=== PATIENT | male | born 1985 | race Two or more races ===

== ENCOUNTER 2017-09-15 02:19 | Inpatient (IN) | payer SELFPAY ==
[~2017-09-15] VITALS: Ht 185.4 cm; Wt 89.8 kg
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
[2017-09-15] MEDS ORDERED: HYDROCODONE/APAP 5/325MG 1 EACH TABLET PO ONE (02:30)
[2017-09-15] MEDS ORDERED: HYDROCODONE/APAP 5/325MG 1 EACH TABLET ONE (02:42)
--- NOTE | 2017-09-15 02:45 | NUR ---
MD DODGE AT BED SIDE FOR EVAL
--- NOTE | 2017-09-15 04:21 | NUR ---
20G LEFT AC IV STARTED, BLOOD SAMPLE OBTAINED AND SENT TO LAB
[2017-09-15] MEDS ORDERED: MORPHINE SULFATE INJ 4 MG/ML DISP.SYRIN ONE (04:29)
[2017-09-15] MEDS ORDERED: ONDANSETRON HCL/PF 4 MG/2 ML VIAL ONE (04:29)
[2017-09-15] MEDS ORDERED: ONDANSETRON HCL/PF 4 MG/2 ML VIAL IV ONE (04:30)
[2017-09-15] MEDS ORDERED: MORPHINE SULFATE INJ 2 MG/ML DISP.SYRIN IV ONE (04:30)
--- NOTE | 2017-09-15 04:33 | NUR ---
MEDICATED PT ORDERED
--- NOTE | 2017-09-15 04:33 | NUR ---
RADIOLOGY AT BED SIDE FOR CHEST XRAY
[2017-09-15 04:47] LABS: CALCIUM, SERUM 8.1 mg/dL (8.5-10.1); CREATININE 1.2 mg/dL (0.6-1.3); POTASSIUM 3.5 mmol/L (3.5-5.1)
[2017-09-15 04:48] LABS: BASOPHILS % (AUTO) 0.1 % (0.0-2.0); EOSINOPHILS % (AUTO) 0.4 % (0.0-6.0); HEMATOCRIT 44 % (39-51); HEMOGLOBIN 14.6 g/dL (13.5-17.5); LYMPHOCYTES # (AUTO) 0.8 /CMM (0.8-4.8); LYMPHOCYTES % (AUTO) 3.8 % (20.0-44.0); MEAN CORPUSCULAR HEMOGLOBIN 31 PG (26.0-33.0); MEAN CORPUSCULAR HGB CONC 34 g/dl (31.0-36.0); MEAN CORPUSCULAR VOLUME 93 fL (80-96); MONOCYTES % (AUTO) 4.8 % (2.0-12.0); NEUTROPHILS # (AUTO) 19.8 /CMM (1.8-8.9); NEUTROPHILS % (AUTO) 90.9 % (43.0-81.0); PLATELET COUNT (AUTO) 249 /CMM (150-450); RDW COEFFICIENT OF VARIATION 12.4 (11.5-15.0); RED BLOOD CELL COUNT(AUTO) 4.68 MIL/uL (4.5-6.0); WHITE BLOOD COUNT (AUTO) 21.8 K/uL (4.3-11.0)
[2017-09-15 04:51] LABS: INR 0.99 (0.87-1.13)
[2017-09-15 05:26] LABS: BAND % (MANUAL) 4 % (0.0-5.0); LYMPHOCYTES % (MANUAL) 4 % (16-48); MONOCYTES % (MANUAL) 4 % (0-11.0); NEUTROPHILS % (MANUAL) 89 (42-76)
[2017-09-15 05:30] VITALS: BP 158/91
--- NOTE | 2017-09-15 05:40 | NUR ---
TRANSPORTED PT TO [facility] BED VIA GURNEY WITHOUT INCIDENT
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
[2017-09-15] MEDS ORDERED: HYDROCODONE/APAP 5/325MG 1 EACH TABLET PO PRN (06:00)
[2017-09-15] MEDS ORDERED: ACETAMINOPHEN 325 MG TABLET PO PRN (06:00)
[2017-09-15] MEDS ORDERED: Z GUARD REMEDY 2 OZ OINT TP PRN (06:00)
[2017-09-15] MEDS ORDERED: ONDANSETRON HCL/PF 4 MG/2 ML VIAL IVP PRN (06:00)
[2017-09-15] MEDS ORDERED: MAGNESIUM HYDROXIDE 30 ML UDC PO PRN (06:00)
[2017-09-15] MEDS ORDERED: ZOLPIDEM TARTRATE 5 MG TABLET PO PRN (06:00)
[2017-09-15] MEDS ORDERED: MORPHINE SULFATE INJ 2 MG/ML DISP.SYRIN IV PRN (06:00)
[2017-09-15] MEDS ORDERED: IV NS 0.9% 1,000 ML IV PRN (06:00)
[2017-09-15 06:05] VITALS: BP 158/91
--- NOTE | 2017-09-15 07:00 | NUR ---
MS RN NOTES PATIENT IN BED , ALERT ORIENTED X 4. NO ACUTE DISTRESS NOTED. BREATHING UNLABORED. NO SOB NOTED. IV ACCESS PATENT AND INTACT, NO REDNESS OR SWELLING NOTED. SAFETY MEASURES IN PLACE. CALL LIGHT WITHIN REACH. WILL CONTINUE TO MONITOR ACCORDINGLY.
[2017-09-15] MEDS ORDERED: ALPR1TAB2 PO (10:01)
[2017-09-15] MEDS ORDERED: ALBU18HF2 IH (10:01)
[2017-09-15] MEDS ORDERED: CLON2TAB PO (10:01)
[2017-09-15] MEDS ORDERED: BECL8.7A6 IH (10:01)
--- NOTE | 2017-09-15 16:45 | NUR ---
MS RN NOTES PATIENT DISCHARGED AMA IN STABLE CONDITION, RISK AND BENEFITS EXPLAINED, VERBALIZED UNDERSTANDING. IV ACCESS REMOVED, NO REDNESS OR SWELLING NOTED. NO ACUTE DISTRESS NOTED. ALL BELONGINGS ACCOUNTED FOR. PATIENT PICKED UP VIA AMBULANCE IN A GURNEY GOING TO [facility]. PATIENT SIGNED AMA.
== END 2017-09-15 16:30 | disposition left against medical advice (07) | DRG 536 ==
LOC: ER 02:23 → MED 05:32
PROVIDERS: ADMIT Nurse Practitioner Acute Care; ATTEND Nurse Practitioner Acute Care
DX: S72.001A Fracture of unspecified part of neck of right femur, initial encounter for closed fracture (principal); V49.9XXA Car occupant (driver) (passenger) injured in unspecified traffic accident, initial encounter; Y93.9 Activity, unspecified; Y92.410 Unspecified street and highway as the place of occurrence of the external cause; E83.51 Hypocalcemia; D72.829 Elevated white blood cell count, unspecified; R73.9 Hyperglycemia, unspecified
CPT/HCPCS: 36415; 71045-TC; 73502; 73552; 80048-TC; 85025-TC; 85730-TC; 87081-TC; A4606; J2270; J2405; J7030; Z7610